=== PATIENT | male | born 1965 | race African-American/Black ===

== ENCOUNTER 2016-04-25 13:42 | Inpatient (IN) | payer OTHER ==
[2016-04-25] MEDS ORDERED: MAGNESIUM CITRATE 300 ML BOTTLE PO PRN (14:29)
[2016-04-25] MEDS ORDERED: MENTHOL/PHENOL 1 EACH UD MM PRN (14:29)
[2016-04-25] MEDS ORDERED: P-EPHED 60MG/TRIPROLIDI 2.5MG TABLET PO PRN (14:29)
[2016-04-25] MEDS ORDERED: guaiFENesin/D-METHORPHAN HB 10 ML UNIT-DOSE CUPS PO PRN (14:29)
[2016-04-25] MEDS ORDERED: LOPERAMIDE HCL 2 MG CAPSULE PO PRN (14:29)
--- NOTE | 2016-04-25 16:31 | HP ---
[facility] Assess/Revision - Admission History Admitted to Rehab from: [facility] Date of Admission to Rehab: 04/25/16 - Findings Detox History & Physical reviewed: Yes Concur with findings: Yes Comments/Additional Findings: transferred from detox to rehab admisison as per protocol
[2016-04-25] MEDS: IBUPROFEN 400 MG TABLET (FP) PO PRN (19:26)
[2016-04-25] MEDS: MAG HYDROX/AL HYDROX/SIMETH 30 ML UNIT-DOSE CUP PO PRN (21:24)
[2016-04-25] MEDS: diphenhydrAMINE HCL 50 MG CAPSULE PO PRN (21:24)
[2016-04-25] MEDS: THIAMINE HCL 100 MG TABLET (FP) PO SCH (21:24)
[2016-04-26] MEDS: diphenhydrAMINE HCL 50 MG CAPSULE PO PRN (02:25)
--- NOTE | 2016-04-26 07:13 | HP ---
Psychiatrist Admission - Data Date of interview: 04/26/16 Admission source: 3N Identifying data: This is the first [facility] admission for this 50 years old male, father of 4, [place] by trade, homeless Medical History: Significant for history of PUD,S/P fracture left 4th finger 25 years ago from [facility], S/P fracture right ankle 26 years ago and S/P Tonsillectomy at age 14 Psychiatric History: Denies history of previous psychiatric treatment Physical/Sexual Abuse/Trauma History: Denies history of physical, sexual abuse as well as DV relationship Additional Comment: Reports history of multile arrests including one felony conviction on charges of drug sale. Denies being on parole/probation at present Vital Signs: Vital Signs - 24 hr 04/26/16 03:30 Respiratory 18 Rate Allergies/Adverse Reactions: Allergies Allergy/AdvReac Type Severity Reaction Status Date / Time No Known Allergies Allergy Verified 04/25/16 13:57 Date of last physical exam: 04/20/16 Concur with the findings of this exam: Yes - Substance Abuse/Tx History Hx Alcohol Use: No Hx Substance Use: Yes Substance Use Type: Cocaine, Heroin (Started using heroin at age 50, consumes 6 bags daily. Last used on 04/20/16), Marijuana Hx Substance Use Treatment: Yes (one recent detox @ [facility]) - Admission Criteria Previous failed treatment: No Poor recovery environment: Yes Comorbidities: Yes Lacks judgement: Yes Mental Status Exam - Mental Status Exam Alert and Oriented to: Time, Place, Person Cognitive Function: Fair Patient Appearance: Well Groomed Mood: Irritable Affect: Appropriate Patient Behavior: Cooperative (superficially) Voice Loudness: Normal Thought Process: Intact Thought Disorder: Not Present Hallucinations: Denies Suicidal Ideation: Denies Homicidal Ideation: Denies Insight/Judgement: Fair Sleep: Fair Appetite: Good Muscle strength/Tone: Normal Gait/Station: Normal Psychiatric Findings - Problem List ([place] 1, 2,3) (1) Opioid dependence with withdrawal Current Visit: No Status: Acute (2) Cocaine dependence, uncomplicated Current Visit: No Status: Chronic (3) Cannabis dependence, uncomplicated Current Visit: No Status: Chronic (4) Nicotine dependence Current Visit: Yes Status: Acute (5) Substance induced mood disorder Current Visit: Yes Status: Acute - Initial Treatment Plan Initial Treatment Plan: Monitor progress
[2016-04-26] MEDS ORDERED: hydrOXYzine PAMOATE 50 MG CAPSULE (FP) PO PRN (07:25)
[2016-04-26] MEDS: PRENATAL VITAMINS W/ FOLIC ACID TABLET (FP) PO SCH (10:15)
[2016-04-26] MEDS: hydrOXYzine PAMOATE 50 MG CAPSULE (FP) PO PRN ×2 (11:32→21:20)
[2016-04-26] MEDS: CYCLOBENZAPRINE HCL 10 MG TABLET (FP) PO PRN ×2 (11:32→21:20)
[2016-04-26] MEDS: ACETAMINOPHEN 325 MG TABLET (FP) PO PRN ×2 (14:56→21:21)
[2016-04-26] MEDS: THIAMINE HCL 100 MG TABLET (FP) PO SCH (21:19)
[2016-04-27] MEDS: diphenhydrAMINE HCL 50 MG CAPSULE PO PRN ×3 (00:18→22:57)
[2016-04-27] MEDS: ACETAMINOPHEN 325 MG TABLET (FP) PO PRN ×2 (01:14→23:58)
[2016-04-27] MEDS: hydrOXYzine PAMOATE 50 MG CAPSULE (FP) PO PRN ×4 (01:14→23:59)
[2016-04-27] MEDS: ONDANSETRON *ODT* 4 MG TABLET SL PRN ×3 (01:48→22:57)
[2016-04-27] MEDS: PRENATAL VITAMINS W/ FOLIC ACID TABLET (FP) PO SCH (10:27)
[2016-04-27] MEDS: CYCLOBENZAPRINE HCL 10 MG TABLET (FP) PO PRN ×2 (10:27→21:51)
[2016-04-27] MEDS ORDERED: diphenhydrAMINE HCL 50 MG CAPSULE PO PRN (11:34)
[2016-04-27] MEDS ORDERED: diphenhydrAMINE HCL 50 MG CAPSULE PO ONE (11:41)
--- NOTE | 2016-04-27 12:57 | PN ---
Psychiatric Progress Note Vital Signs: Vital Signs Period Temp Pulse Resp BP Sys/Linder Pulse Ox Last 24 Hr 96.9 F 20 18-76 111/78 Date of Session: 04/27/16 Chief Complaint:: insomnia HPI: Patient is a 50 year old male with history of opioid, cocaine, nicotine, cannabise dependence comorbid Substance induced mood disorder. ROS: PUD,S/P fracture left 4th finger 25 years ago from [facility], S/P fracture right ankle 26 years ago and S/P Tonsillectomy at age 14 Current Medications: Active Medications Generic Name Dose Route Start Last Admin Trade Name Freq PRN Reason Stop Dose Admin Acetaminophen 650 mg 04/25/16 14:29 04/27/16 01:14 Tylenol - PO 650 mg Q4H PRN Administration FEVER OR PAIN Al Hydroxide/Mg Hydroxide 30 ml 04/25/16 14:29 04/25/16 21:24 Mylanta Oral Suspension - PO 30 ml Q6H PRN Administration DYSPEPSIA Cyclobenzaprine HCl 10 mg 04/26/16 09:22 04/27/16 10:27 Flexeril - PO 10 mg TID PRN Administration MUSCLE SPASMS Diphenhydramine HCl 50 mg 04/27/16 22:00 Benadryl - PO HS PRN INSOMNIA Eucalyptus/Menthol/Phenol/Sorbitol 1 each 04/25/16 14:29 Cepastat Lozenge - MM Q4H PRN SORE THROAT Guaifenesin 10 ml 04/25/16 14:29 Robitussin Dm - PO Q6H PRN COUGH Hydroxyzine Pamoate 50 mg 04/26/16 07:33 04/27/16 10:27 Vistaril - PO 50 mg Q4H PRN Administration AGITATION Ibuprofen 400 mg 04/25/16 14:29 04/25/16 19:26 Motrin - PO 400 mg Q6H PRN Administration PAIN Loperamide HCl 4 mg 04/25/16 14:29 Imodium - PO Q6H PRN DIARRHEA Magnesium Citrate 300 ml 04/25/16 14:29 Citroma - PO 04/27/16 14:30 Q48H PRN CONSTIPATION Magnesium Hydroxide 30 ml 04/25/16 14:29 Milk Of Magnesia - PO DAILY PRN CONSTIPATION Ondansetron HCl 4 mg 04/26/16 13:03 04/27/16 01:48 Zofran Odt - SL 4 mg Q6H PRN Administration NAUSEA AND/OR VOMITING Multivit/Folic Acid/Iron 1 tab 04/26/16 10:00 04/27/16 10:27 Vitamins (Sjr) - PO 1 tab DAILY ZOE Administration Pseudoephedrine/Triprolidine 1 combo 04/25/16 14:29 Actifed - PO TID PRN NASAL CONGESTION Thiamine HCl 100 mg 04/25/16 22:00 04/26/16 21:19 Vitamin B1 - PO 100 mg HS ZOE Administration Current Side Effect: No Lab tests ordered: No Lab tests reviewed: Yes Provider note:: Reviewed the chart, 's admission notes appreciated, patient having a difficult time to adjust to the unit, reports he has body aches , unable to sleep, "up since 1 am", irritable and unable to stay in the groups. When discssued with the patient about availabilty of Vistaril he became angry stating "I am not crazy, I don't want anything "and left the office. 10 minites later patient came back with appology and reported that he needs to take Benadryl and rather to go to bed ad not to wait till evening. Benaryl 100 mg po state ordered, patient was encouraged to ask for Vistaril PRN order, will continue to monitor progress. Total face to face time:: 35 Mental Status Exam - Mental Status Exam Alert and Oriented to: Place, Person Cognitive Function: Grossly Intact Patient Appearance: Well Groomed Mood: Angry, Anxious, Irritable Affect: Mood Congruent Patient Behavior: Appropriate Speech Pattern: Clear, Appropriate Voice Loudness: Normal Thought Process: Goal Oriented Thought Disorder: Not Present Hallucinations: Denies Suicidal Ideation: Denies Homicidal Ideation: Denies Insight/Judgement: Fair Sleep: Poorly (up since 1 am), Difficulty falling asleep Appetite: Fair Muscle strength/Tone: Normal Gait/Station: Normal Psychiatric Treatment Plan - Problem List (1) Nicotine dependence Current Visit: Yes (2) Substance induced mood disorder Current Visit: Yes (3) Opioid dependence with withdrawal Current Visit: No (4) Cannabis dependence, uncomplicated Current Visit: No
[2016-04-27] MEDS: THIAMINE HCL 100 MG TABLET (FP) PO SCH (21:49)
[2016-04-27] MEDS: DOCUSATE SODIUM 100 MG CAPSULE (FP) PO PRN (21:50)
[2016-04-28] MEDS ORDERED: QUEtiapine FUMARATE 25 MG TABLET (FP) PO ONE (07:41)
--- NOTE | 2016-04-28 09:41 | PN ---
Psychiatric Progress Note Vital Signs: Vital Signs Period Temp Pulse Resp BP Sys/Linder Pulse Ox Last 24 Hr 97.4 F 84 18 126/93 Date of Session: 04/28/16 Chief Complaint:: "insomnia, mood swings" HPI: PAtient is addressing opioid, cocaine, nicotine, cannabis dependence comorbid Substance induced mood disorder. ROS: PUD,S/P fracture left 4th finger 25 years ago from [facility], S/P fracture right ankle 26 years ago and S/P Tonsillectomy at age 14 Current Medications: Active Medications Generic Name Dose Route Start Last Admin Trade Name Freq PRN Reason Stop Dose Admin Acetaminophen 650 mg 04/25/16 14:29 04/27/16 23:58 Tylenol - PO 650 mg Q4H PRN Administration FEVER OR PAIN Al Hydroxide/Mg Hydroxide 30 ml 04/25/16 14:29 04/25/16 21:24 Mylanta Oral Suspension - PO 30 ml Q6H PRN Administration DYSPEPSIA Cyclobenzaprine HCl 10 mg 04/26/16 09:22 04/27/16 21:51 Flexeril - PO 10 mg TID PRN Administration MUSCLE SPASMS Diphenhydramine HCl 50 mg 04/27/16 22:00 04/27/16 22:57 Benadryl - PO 50 mg HS PRN Administration INSOMNIA Docusate Sodium 100 mg 04/27/16 21:25 04/27/16 21:50 Colace - PO 100 mg BID PRN Administration CONSTIPATION Eucalyptus/Menthol/Phenol/Sorbitol 1 each 04/25/16 14:29 Cepastat Lozenge - MM Q4H PRN SORE THROAT Guaifenesin 10 ml 04/25/16 14:29 Robitussin Dm - PO Q6H PRN COUGH Hydroxyzine Pamoate 50 mg 04/26/16 07:33 04/27/16 23:59 Vistaril - PO 50 mg Q4H PRN Administration AGITATION Ibuprofen 400 mg 04/25/16 14:29 04/25/16 19:26 Motrin - PO 400 mg Q6H PRN Administration PAIN Loperamide HCl 4 mg 04/25/16 14:29 Imodium - PO Q6H PRN DIARRHEA Magnesium Hydroxide 30 ml 04/25/16 14:29 Milk Of Magnesia - PO DAILY PRN CONSTIPATION Ondansetron HCl 4 mg 04/26/16 13:03 04/27/16 22:57 Zofran Odt - SL 4 mg Q6H PRN Administration NAUSEA AND/OR VOMITING Multivit/Folic Acid/Iron 1 tab 04/26/16 10:00 04/27/16 10:27 Vitamins (Sjr) - PO 1 tab DAILY ZOE Administration Pseudoephedrine/Triprolidine 1 combo 04/25/16 14:29 Actifed - PO TID PRN NASAL CONGESTION Quetiapine Fumarate 25 mg 04/28/16 22:00 Seroquel - PO HS ZOE Thiamine HCl 100 mg 04/25/16 22:00 04/27/16 21:49 Vitamin B1 - PO Not Given HS ZOE Current Side Effect: No Lab tests ordered: No Lab tests reviewed: Yes Provider note:: Patient reports did not sleep all night and he is very irritable , having mood swings, night staff also reported that patient was up all night pacing in [place], discussed with the patient indications and properties of Seroquel, patient agreed to start medications, will start 25 mg po hs and will give stat Seroquel 25 mg , continue to monitor progress. Total face to face time:: 15 Mental Status Exam - Mental Status Exam Alert and Oriented to: Place, Person Cognitive Function: Grossly Intact Patient Appearance: Well Groomed Mood: Sad, Anxious, Irritable Affect: Mood Congruent Patient Behavior: Cooperative Speech Pattern: Clear, Appropriate Voice Loudness: Normal Thought Process: Intact Thought Disorder: Not Present Hallucinations: Denies Suicidal Ideation: Denies Homicidal Ideation: Denies Insight/Judgement: Fair Sleep: Poorly, Difficulty falling asleep Appetite: Fair Muscle strength/Tone: Normal Gait/Station: Normal Psychiatric Treatment Plan - Problem List (1) Nicotine dependence Current Visit: Yes (2) Substance induced mood disorder Current Visit: Yes (3) Opioid dependence with withdrawal Current Visit: No (4) Cannabis dependence, uncomplicated Current Visit: No
[2016-04-28] MEDS: CYCLOBENZAPRINE HCL 10 MG TABLET (FP) PO PRN (10:26)
[2016-04-28] MEDS: hydrOXYzine PAMOATE 50 MG CAPSULE (FP) PO PRN (10:26)
[2016-04-28] MEDS: PRENATAL VITAMINS W/ FOLIC ACID TABLET (FP) PO SCH (10:27)
[2016-04-28] MEDS ORDERED: LIDOCAINE 5% TOPICAL PATCH TP ONE (12:52)
--- NOTE | 2016-04-28 13:05 | PN ---
[facility] Progress Note Note: patient reports feeling better after Seroquel am, but still irritable , racing thoughst and restless, will increase Seroquel 50 mg po hs, continue am 25, monitor progress as needed.
[2016-04-28] MEDS: MAGNESIUM HYDROX 2400MG/30ML ORAL SUSPENSION 30 ML CUP PO PRN (19:16)
[2016-04-28] MEDS: diphenhydrAMINE HCL 50 MG CAPSULE PO PRN (21:19)
[2016-04-28] MEDS: QUEtiapine FUMARATE 50 MG TABLET PO SCH (21:19)
[2016-04-28] MEDS: THIAMINE HCL 100 MG TABLET (FP) PO SCH (21:19)
[2016-04-28] MEDS: cloNIDine HCL 0.1 MG TABLET PO SCH (21:19)
[2016-04-28] MEDS: ONDANSETRON *ODT* 4 MG TABLET SL PRN (21:59)
[2016-04-28] MEDS ORDERED: QUEtiapine FUMARATE 25 MG TABLET (FP) PO SCH (22:00)
[2016-04-29] MEDS: diphenhydrAMINE HCL 50 MG CAPSULE PO PRN ×2 (00:12→21:01)
[2016-04-29] MEDS: CYCLOBENZAPRINE HCL 10 MG TABLET (FP) PO PRN (00:13)
[2016-04-29] MEDS: hydrOXYzine PAMOATE 50 MG CAPSULE (FP) PO PRN ×2 (01:13→06:30)
[2016-04-29] MEDS: ACETAMINOPHEN 325 MG TABLET (FP) PO PRN (01:13)
[2016-04-29] MEDS ORDERED: cloNIDine HCL 0.1 MG TABLET PO ONE (04:02)
[2016-04-29] MEDS: cloNIDine HCL 0.1 MG TABLET PO SCH ×2 (09:17→21:01)
[2016-04-29] MEDS: QUEtiapine FUMARATE 25 MG TABLET (FP) PO SCH (09:17)
[2016-04-29] MEDS: PRENATAL VITAMINS W/ FOLIC ACID TABLET (FP) PO SCH (09:17)
[2016-04-29] MEDS ORDERED: LIDOCAINE 5% TOPICAL PATCH TP SCH (10:00)
[2016-04-29] MEDS: THIAMINE HCL 100 MG TABLET (FP) PO SCH (21:01)
[2016-04-29] MEDS: QUEtiapine FUMARATE 50 MG TABLET PO SCH (21:01)
[2016-04-30] MEDS: diphenhydrAMINE HCL 50 MG CAPSULE PO PRN ×2 (00:22→21:20)
[2016-04-30] MEDS: IBUPROFEN 400 MG TABLET (FP) PO PRN (03:52)
[2016-04-30] MEDS: QUEtiapine FUMARATE 25 MG TABLET (FP) PO SCH (10:20)
[2016-04-30] MEDS: DOCUSATE SODIUM 100 MG CAPSULE (FP) PO PRN (10:20)
[2016-04-30] MEDS: cloNIDine HCL 0.1 MG TABLET PO SCH ×2 (10:20→21:19)
[2016-04-30] MEDS: PRENATAL VITAMINS W/ FOLIC ACID TABLET (FP) PO SCH (10:20)
[2016-04-30] MEDS: QUEtiapine FUMARATE 50 MG TABLET PO SCH (21:19)
[2016-04-30] MEDS: THIAMINE HCL 100 MG TABLET (FP) PO SCH (21:20)
[2016-04-30] MEDS: MAGNESIUM HYDROX 2400MG/30ML ORAL SUSPENSION 30 ML CUP PO PRN (23:24)
[2016-05-01] MEDS: diphenhydrAMINE HCL 50 MG CAPSULE PO PRN ×3 (00:14→23:42)
[2016-05-01] MEDS: CYCLOBENZAPRINE HCL 10 MG TABLET (FP) PO PRN ×2 (00:15→18:18)
[2016-05-01] MEDS: PRENATAL VITAMINS W/ FOLIC ACID TABLET (FP) PO SCH (09:00)
[2016-05-01] MEDS: QUEtiapine FUMARATE 25 MG TABLET (FP) PO SCH (09:00)
[2016-05-01] MEDS: DOCUSATE SODIUM 100 MG CAPSULE (FP) PO PRN (09:00)
[2016-05-01] MEDS: cloNIDine HCL 0.1 MG TABLET PO SCH (09:01)
[2016-05-01] MEDS: hydrOXYzine PAMOATE 50 MG CAPSULE (FP) PO PRN ×2 (09:01→19:21)
[2016-05-01] MEDS: ACETAMINOPHEN 325 MG TABLET (FP) PO PRN (09:02)
[2016-05-01] MEDS: ONDANSETRON *ODT* 4 MG TABLET SL PRN ×3 (13:05→23:42)
[2016-05-01] MEDS ORDERED: TRIMETHOBENZAMIDE HCL 200MG/2ML INJ IM PRN (13:28)
--- NOTE | 2016-05-01 13:31 | PN ---
S Progress Note Note: patient has vomiting,tigan 200 mgs im Q 8hrs prn for vomiting,close monitoring
[2016-05-01] MEDS: THIAMINE HCL 100 MG TABLET (FP) PO SCH (21:40)
[2016-05-01] MEDS: QUEtiapine FUMARATE 50 MG TABLET PO SCH (21:40)
[2016-05-01] MEDS: cloNIDine HCL 0.1 MG TABLET PO PRN (21:41)
[2016-05-02] MEDS: hydrOXYzine PAMOATE 50 MG CAPSULE (FP) PO PRN ×3 (01:10→23:13)
[2016-05-02] MEDS: cloNIDine HCL 0.1 MG TABLET PO PRN (06:59)
[2016-05-02] MEDS: CYCLOBENZAPRINE HCL 10 MG TABLET (FP) PO PRN ×2 (07:01→23:13)
[2016-05-02] MEDS: DOCUSATE SODIUM 100 MG CAPSULE (FP) PO PRN (10:42)
[2016-05-02] MEDS: QUEtiapine FUMARATE 25 MG TABLET (FP) PO SCH (10:42)
[2016-05-02] MEDS: PRENATAL VITAMINS W/ FOLIC ACID TABLET (FP) PO SCH (10:42)
[2016-05-02] MEDS: ONDANSETRON *ODT* 4 MG TABLET SL PRN ×2 (10:43→22:20)
[2016-05-02] MEDS: QUEtiapine FUMARATE 50 MG TABLET PO SCH (21:24)
[2016-05-02] MEDS: THIAMINE HCL 100 MG TABLET (FP) PO SCH (21:24)
[2016-05-02] MEDS: diphenhydrAMINE HCL 50 MG CAPSULE PO PRN ×2 (21:25→22:24)
[2016-05-03] MEDS: cloNIDine HCL 0.1 MG TABLET PO PRN ×3 (00:43→21:32)
[2016-05-03] MEDS: MAG HYDROX/AL HYDROX/SIMETH 30 ML UNIT-DOSE CUP PO PRN (03:33)
[2016-05-03] MEDS: hydrOXYzine PAMOATE 50 MG CAPSULE (FP) PO PRN ×3 (03:33→21:32)
[2016-05-03] MEDS: QUEtiapine FUMARATE 25 MG TABLET (FP) PO SCH (09:06)
[2016-05-03] MEDS: PRENATAL VITAMINS W/ FOLIC ACID TABLET (FP) PO SCH (09:06)
[2016-05-03] MEDS: CYCLOBENZAPRINE HCL 10 MG TABLET (FP) PO PRN ×2 (09:08→21:32)
--- NOTE | 2016-05-03 13:29 | PN ---
Psychiatric Progress Note Vital Signs: Vital Signs Period Temp Pulse Resp BP Sys/Linder Pulse Ox Last 24 Hr 97 F 64-95 18-18 117-129/75-78 Date of Session: 05/03/16 Chief Complaint:: progress update HPI: Patient is addressing opioid, cocaine, nicotine, cannabis dependence comorbid Substance induced mood disorder. ROS: WNL Current Medications: Active Medications Generic Name Dose Route Start Last Admin Trade Name Freq PRN Reason Stop Dose Admin Acetaminophen 650 mg 04/25/16 14:29 05/01/16 09:02 Tylenol - PO 650 mg Q4H PRN Administration FEVER OR PAIN Al Hydroxide/Mg Hydroxide 30 ml 04/25/16 14:29 05/03/16 03:33 Mylanta Oral Suspension - PO 30 ml Q6H PRN Administration DYSPEPSIA Clonidine 0.1 mg 05/01/16 20:43 05/03/16 09:07 Catapres - PO 0.1 mg TID PRN Administration HYPERTENSION Cyclobenzaprine HCl 10 mg 04/26/16 09:22 05/03/16 09:08 Flexeril - PO 10 mg TID PRN Administration MUSCLE SPASMS Diphenhydramine HCl 50 mg 04/27/16 22:00 05/02/16 22:24 Benadryl - PO 50 mg HS PRN Administration INSOMNIA Docusate Sodium 100 mg 04/27/16 21:25 05/02/16 10:42 Colace - PO 100 mg BID PRN Administration CONSTIPATION Eucalyptus/Menthol/Phenol/Sorbitol 1 each 04/25/16 14:29 Cepastat Lozenge - MM Q4H PRN SORE THROAT Guaifenesin 10 ml 04/25/16 14:29 Robitussin Dm - PO Q6H PRN COUGH Hydroxyzine Pamoate 50 mg 04/26/16 07:33 05/03/16 09:07 Vistaril - PO 50 mg Q4H PRN Administration AGITATION Ibuprofen 400 mg 04/25/16 14:29 04/30/16 03:52 Motrin - PO 400 mg Q6H PRN Administration PAIN Loperamide HCl 4 mg 04/25/16 14:29 Imodium - PO Q6H PRN DIARRHEA Magnesium Hydroxide 30 ml 04/25/16 14:29 04/30/16 23:24 Milk Of Magnesia - PO 30 ml DAILY PRN Administration CONSTIPATION Ondansetron HCl 4 mg 04/26/16 13:03 05/02/16 22:20 Zofran Odt - SL 4 mg Q6H PRN Administration NAUSEA AND/OR VOMITING Multivit/Folic Acid/Iron 1 tab 04/26/16 10:00 05/03/16 09:06 Vitamins (Sjr) - PO 1 tab DAILY ZOE Administration Pseudoephedrine/Triprolidine 1 combo 04/25/16 14:29 Actifed - PO TID PRN NASAL CONGESTION Quetiapine Fumarate 25 mg 04/29/16 10:00 05/03/16 09:06 Seroquel - PO 25 mg DAILY ZOE Administration Thiamine HCl 100 mg 04/25/16 22:00 05/02/16 21:24 Vitamin B1 - PO 100 mg HS ZOE Administration Trimethobenzamide HCl 200 mg 05/01/16 13:28 05/01/16 13:54 Tigan Injection - IM 200 mg Q8H PRN Administration NAUSEA AND/OR VOMITING Current Side Effect: No Lab tests ordered: No Lab tests reviewed: Yes Provider note:: Patient was seen today, he continues to c/o insomnia, mood swings, irritablity, states he sleeps 30 min and the rest of the nights he is up , on 05/02/16 as per nurses report he was restless and c/o withdrawal symptoms: anxiety, insomnia, sweats, and bodyaches and was seen by . Reviwed his current medications, will increase Seroquel 100 mg hs, psycheducations and supportive therapy provided, will continue to monitor. Total face to face time:: 30 Mental Status Exam - Mental Status Exam Alert and Oriented to: Time, Place, Person Cognitive Function: Good Patient Appearance: Well Groomed Mood: Depressed, Sad, Anxious Affect: Appropriate, Mood Congruent Patient Behavior: Restless, Cooperative Speech Pattern: Clear, Appropriate Voice Loudness: Normal Thought Process: Goal Oriented Thought Disorder: Not Present Hallucinations: Denies Suicidal Ideation: Denies Homicidal Ideation: Denies Insight/Judgement: Fair Sleep: Poorly, Difficulty falling asleep Appetite: Fair Muscle strength/Tone: Normal Gait/Station: Normal Psychiatric Treatment Plan - Problem List (1) Nicotine dependence Current Visit: Yes (2) Substance induced mood disorder Current Visit: Yes (3) Opioid dependence with withdrawal Current Visit: No (4) Cannabis dependence, uncomplicated Current Visit: No
[2016-05-03] MEDS: THIAMINE HCL 100 MG TABLET (FP) PO SCH (21:30)
[2016-05-03] MEDS: QUEtiapine FUMARATE 100 MG TABLET (FP) PO SCH (21:31)
[2016-05-03] MEDS: diphenhydrAMINE HCL 50 MG CAPSULE PO PRN (23:55)
[2016-05-04] MEDS: PRENATAL VITAMINS W/ FOLIC ACID TABLET (FP) PO SCH (09:27)
[2016-05-04] MEDS: hydrOXYzine PAMOATE 50 MG CAPSULE (FP) PO PRN ×2 (09:27→21:11)
[2016-05-04] MEDS: cloNIDine HCL 0.1 MG TABLET PO PRN ×2 (09:28→21:11)
[2016-05-04] MEDS: QUEtiapine FUMARATE 25 MG TABLET (FP) PO SCH (09:28)
[2016-05-04] MEDS: CYCLOBENZAPRINE HCL 10 MG TABLET (FP) PO PRN ×2 (09:28→21:11)
[2016-05-04] MEDS: THIAMINE HCL 100 MG TABLET (FP) PO SCH (21:09)
[2016-05-04] MEDS: QUEtiapine FUMARATE 100 MG TABLET (FP) PO SCH (21:11)
[2016-05-04] MEDS: diphenhydrAMINE HCL 50 MG CAPSULE PO PRN (22:20)
[2016-05-04] MEDS: ONDANSETRON *ODT* 4 MG TABLET SL PRN (23:14)
[2016-05-05] MEDS: MAG HYDROX/AL HYDROX/SIMETH 30 ML UNIT-DOSE CUP PO PRN (01:00)
[2016-05-05] MEDS ORDERED: PANTOPRAZOLE 40 MG TABLET (FP) PO ONE (02:30)
--- NOTE | 2016-05-05 02:38 | PN ---
S Progress Note Note: Pt. c/o of stomach pain. He reports he's had this pain for the last 5 years. He describes the pain as intermittent burning sensation and rates the pain 7/ 10. He also complains of having a malodorous taste in his mouth. BSx 4; mild tenderness on palpation to left lower quadrant. Protonix 40mg daily ordered. Will continue to monitor. Last Vital Signs Temp Pulse Resp BP 95.9 F 95 H 15 110/76 05/05/16 05/05/16 05/05/16 05/05/16
[2016-05-05] MEDS: QUEtiapine FUMARATE 25 MG TABLET (FP) PO SCH (11:00)
[2016-05-05] MEDS: PRENATAL VITAMINS W/ FOLIC ACID TABLET (FP) PO SCH (11:00)
--- NOTE | 2016-05-05 11:36 | PN ---
Psychiatric Progress Note Vital Signs: Vital Signs Period Temp Pulse Resp BP Sys/Linder Pulse Ox Last 24 Hr 98.8 F 82-101 16-18 130-163/67-83 Date of Session: 05/05/16 Chief Complaint:: "insomnia" HPI: Patient addressing oipoid, nicotine dependence comorbid substcance induced mood and sleep disorder. Current Medications: Active Medications Generic Name Dose Route Start Last Admin Trade Name Freq PRN Reason Stop Dose Admin Acetaminophen 650 mg 04/25/16 14:29 05/01/16 09:02 Tylenol - PO 650 mg Q4H PRN Administration FEVER OR PAIN Al Hydroxide/Mg Hydroxide 30 ml 04/25/16 14:29 05/05/16 01:00 Mylanta Oral Suspension - PO 30 ml Q6H PRN Administration DYSPEPSIA Clonidine 0.1 mg 05/01/16 20:43 05/04/16 21:11 Catapres - PO 0.1 mg TID PRN Administration HYPERTENSION Cyclobenzaprine HCl 10 mg 04/26/16 09:22 05/04/16 21:11 Flexeril - PO 10 mg TID PRN Administration MUSCLE SPASMS Diphenhydramine HCl 50 mg 04/27/16 22:00 05/04/16 22:20 Benadryl - PO 50 mg HS PRN Administration INSOMNIA Docusate Sodium 100 mg 04/27/16 21:25 05/02/16 10:42 Colace - PO 100 mg BID PRN Administration CONSTIPATION Eucalyptus/Menthol/Phenol/Sorbitol 1 each 04/25/16 14:29 Cepastat Lozenge - MM Q4H PRN SORE THROAT Guaifenesin 10 ml 04/25/16 14:29 Robitussin Dm - PO Q6H PRN COUGH Hydroxyzine Pamoate 50 mg 04/26/16 07:33 05/04/16 21:11 Vistaril - PO 50 mg Q4H PRN Administration AGITATION Ibuprofen 400 mg 04/25/16 14:29 04/30/16 03:52 Motrin - PO 400 mg Q6H PRN Administration PAIN Loperamide HCl 4 mg 04/25/16 14:29 Imodium - PO Q6H PRN DIARRHEA Magnesium Hydroxide 30 ml 04/25/16 14:29 04/30/16 23:24 Milk Of Magnesia - PO 30 ml DAILY PRN Administration CONSTIPATION Ondansetron HCl 4 mg 04/26/16 13:03 05/04/16 23:14 Zofran Odt - SL 4 mg Q6H PRN Administration NAUSEA AND/OR VOMITING Pantoprazole Sodium 40 mg 05/06/16 10:00 Protonix - PO DAILY ZOE Multivit/Folic Acid/Iron 1 tab 04/26/16 10:00 05/05/16 11:00 Vitamins (Sjr) - PO Not Given DAILY ZOE Pseudoephedrine/Triprolidine 1 combo 04/25/16 14:29 Actifed - PO TID PRN NASAL CONGESTION Quetiapine Fumarate 25 mg 04/29/16 10:00 05/05/16 11:00 Seroquel - PO Not Given DAILY ZOE Quetiapine Fumarate 100 mg 05/03/16 22:00 05/04/16 21:11 Seroquel - PO 100 mg HS ZOE Administration Thiamine HCl 100 mg 04/25/16 22:00 05/04/16 21:09 Vitamin B1 - PO 100 mg HS ZOE Administration Trimethobenzamide HCl 200 mg 05/01/16 13:28 05/01/16 13:54 Tigan Injection - IM 200 mg Q8H PRN Administration NAUSEA AND/OR VOMITING Current Side Effect: No Lab tests ordered: No Lab tests reviewed: Yes Provider note:: Patient continues having difficulty to adjust to the treatment due to insomnia, as per medical staff reports patient all night is up despite of being medicated,he also refuses to take am Seroquel, discussed with the patient indications and properties of ambien, patient was informed that ambien will be presribed for 7 days to help patient with his insomnia. Total face to face time:: 15 Mental Status Exam - Mental Status Exam Alert and Oriented to: Place, Person Cognitive Function: Grossly Intact Patient Appearance: Well Groomed Mood: Sad, Anxious, Irritable Affect: Mood Congruent Patient Behavior: Cooperative Speech Pattern: Appropriate Voice Loudness: Normal Thought Process: Goal Oriented Thought Disorder: Not Present Hallucinations: Denies Suicidal Ideation: Denies Homicidal Ideation: Denies Insight/Judgement: Fair Sleep: Poorly, Difficulty falling asleep Appetite: Fair Muscle strength/Tone: Normal Gait/Station: Normal Psychiatric Treatment Plan - Problem List (1) Nicotine dependence Current Visit: Yes (2) Substance induced mood disorder Current Visit: Yes (3) Opioid dependence with withdrawal Current Visit: No (4) Cannabis dependence, uncomplicated Current Visit: No
[2016-05-05] MEDS: QUEtiapine FUMARATE 100 MG TABLET (FP) PO SCH (21:37)
[2016-05-05] MEDS: PANTOPRAZOLE 40 MG TABLET (FP) PO SCH (21:37)
[2016-05-05] MEDS: THIAMINE HCL 100 MG TABLET (FP) PO SCH (21:37)
[2016-05-05] MEDS: ZOLPIDEM TARTRATE 10 MG TABLET (PARK CARE ONLY) PO PRN (21:40)
[2016-05-05] MEDS ORDERED: PANTOPRAZOLE 40 MG TABLET (FP) PO SCH (22:00)
[2016-05-06] MEDS ORDERED: PANTOPRAZOLE 40 MG TABLET (FP) PO SCH (10:00)
[2016-05-06] MEDS: PRENATAL VITAMINS W/ FOLIC ACID TABLET (FP) PO SCH (10:18)
[2016-05-06] MEDS: ZOLPIDEM TARTRATE 10 MG TABLET (PARK CARE ONLY) PO PRN (21:21)
[2016-05-06] MEDS: QUEtiapine FUMARATE 100 MG TABLET (FP) PO SCH (21:22)
[2016-05-06] MEDS: THIAMINE HCL 100 MG TABLET (FP) PO SCH (21:22)
[2016-05-06] MEDS: PANTOPRAZOLE 40 MG TABLET (FP) PO SCH (21:22)
[2016-05-06] MEDS: MAGNESIUM HYDROX 2400MG/30ML ORAL SUSPENSION 30 ML CUP PO PRN (22:40)
[2016-05-07] MEDS: MAG HYDROX/AL HYDROX/SIMETH 30 ML UNIT-DOSE CUP PO PRN ×2 (00:53→11:01)
[2016-05-07] MEDS: ONDANSETRON *ODT* 4 MG TABLET SL PRN (01:16)
[2016-05-07] MEDS: hydrOXYzine PAMOATE 50 MG CAPSULE (FP) PO PRN (02:21)
[2016-05-07] MEDS: cloNIDine HCL 0.1 MG TABLET PO PRN (05:47)
[2016-05-07] MEDS: DOCUSATE SODIUM 100 MG CAPSULE (FP) PO PRN (05:47)
[2016-05-07] MEDS: PRENATAL VITAMINS W/ FOLIC ACID TABLET (FP) PO SCH (10:42)
[2016-05-07] MEDS: RANITIDINE HCL 150 MG TABLET (FP) PO SCH ×2 (12:01→21:24)
[2016-05-07] MEDS: PANTOPRAZOLE 40 MG TABLET (FP) PO SCH (21:24)
[2016-05-07] MEDS: ZOLPIDEM TARTRATE 10 MG TABLET (PARK CARE ONLY) PO PRN (21:24)
[2016-05-07] MEDS: QUEtiapine FUMARATE 100 MG TABLET (FP) PO SCH (21:24)
[2016-05-07] MEDS: THIAMINE HCL 100 MG TABLET (FP) PO SCH (21:51)
[2016-05-08] MEDS: hydrOXYzine PAMOATE 50 MG CAPSULE (FP) PO PRN (02:27)
[2016-05-08] MEDS: DOCUSATE SODIUM 100 MG CAPSULE (FP) PO PRN (06:36)
[2016-05-08] MEDS: cloNIDine HCL 0.1 MG TABLET PO PRN (06:36)
[2016-05-08] MEDS: PRENATAL VITAMINS W/ FOLIC ACID TABLET (FP) PO SCH (09:55)
[2016-05-08] MEDS: RANITIDINE HCL 150 MG TABLET (FP) PO SCH ×2 (09:55→21:26)
[2016-05-08] MEDS: QUEtiapine FUMARATE 100 MG TABLET (FP) PO SCH (21:26)
[2016-05-08] MEDS: THIAMINE HCL 100 MG TABLET (FP) PO SCH (21:26)
[2016-05-08] MEDS: PANTOPRAZOLE 40 MG TABLET (FP) PO SCH (21:27)
[2016-05-08] MEDS: ZOLPIDEM TARTRATE 10 MG TABLET (PARK CARE ONLY) PO PRN (21:27)
[2016-05-09] MEDS: DOCUSATE SODIUM 100 MG CAPSULE (FP) PO PRN (00:32)
[2016-05-09] MEDS: MAG HYDROX/AL HYDROX/SIMETH 30 ML UNIT-DOSE CUP PO PRN (02:19)
[2016-05-09] MEDS: RANITIDINE HCL 150 MG TABLET (FP) PO SCH ×2 (09:37→21:48)
[2016-05-09] MEDS: PRENATAL VITAMINS W/ FOLIC ACID TABLET (FP) PO SCH (09:37)
[2016-05-09] MEDS: THIAMINE HCL 100 MG TABLET (FP) PO SCH (21:47)
[2016-05-09] MEDS: QUEtiapine FUMARATE 100 MG TABLET (FP) PO SCH (21:48)
[2016-05-09] MEDS: PANTOPRAZOLE 40 MG TABLET (FP) PO SCH (21:48)
[2016-05-09] MEDS: hydrOXYzine PAMOATE 50 MG CAPSULE (FP) PO PRN (21:52)
[2016-05-09] MEDS: MAGNESIUM HYDROX 2400MG/30ML ORAL SUSPENSION 30 ML CUP PO PRN (23:35)
[2016-05-09] MEDS: ONDANSETRON *ODT* 4 MG TABLET SL PRN (23:38)
[2016-05-10] MEDS: hydrOXYzine PAMOATE 50 MG CAPSULE (FP) PO PRN (01:38)
[2016-05-10] MEDS: diphenhydrAMINE HCL 50 MG CAPSULE PO PRN ×3 (01:55→23:52)
[2016-05-10] MEDS: PRENATAL VITAMINS W/ FOLIC ACID TABLET (FP) PO SCH (09:34)
[2016-05-10] MEDS: RANITIDINE HCL 150 MG TABLET (FP) PO SCH ×2 (09:34→21:14)
[2016-05-10] MEDS: PSYLLIUM 5.85 GM PACKET PO SCH (21:13)
[2016-05-10] MEDS: QUEtiapine FUMARATE 100 MG TABLET (FP) PO SCH (21:14)
[2016-05-10] MEDS: PANTOPRAZOLE 40 MG TABLET (FP) PO SCH (21:14)
[2016-05-10] MEDS: THIAMINE HCL 100 MG TABLET (FP) PO SCH (21:15)
[2016-05-10] MEDS: ONDANSETRON *ODT* 4 MG TABLET SL PRN (21:23)
[2016-05-11] MEDS: PSYLLIUM 5.85 GM PACKET PO SCH ×2 (10:11→21:34)
[2016-05-11] MEDS: PRENATAL VITAMINS W/ FOLIC ACID TABLET (FP) PO SCH (10:11)
[2016-05-11] MEDS: POLYETHYLENE GLYCOL 3350 119 GM BTL PO SCH (10:11)
[2016-05-11] MEDS: RANITIDINE HCL 150 MG TABLET (FP) PO SCH ×2 (10:12→21:31)
[2016-05-11] MEDS: hydrOXYzine PAMOATE 50 MG CAPSULE (FP) PO PRN (10:31)
--- NOTE | 2016-05-11 13:08 | PN ---
Psychiatric Progress Note Vital Signs: Vital Signs Period Temp Pulse Resp BP Sys/Linder Pulse Ox Last 24 Hr 97.9 F 89-90 18 130-141/80-82 Date of Session: 05/11/16 Chief Complaint:: I didint sleep for a few days and Seroquel didnt help." HPI: Patient addressed Opioid,Cocaine and Cannabis depenendce comorbid with Substance induced mood disorder. ROS: Unremarkable. Current Medications: Active Medications Generic Name Dose Route Start Last Admin Trade Name Freq PRN Reason Stop Dose Admin Acetaminophen 650 mg 04/25/16 14:29 05/01/16 09:02 Tylenol - PO 650 mg Q4H PRN Administration FEVER OR PAIN Al Hydroxide/Mg Hydroxide 30 ml 04/25/16 14:29 05/09/16 02:19 Mylanta Oral Suspension - PO 30 ml Q6H PRN Administration DYSPEPSIA Clonidine 0.1 mg 05/01/16 20:43 05/08/16 06:36 Catapres - PO 0.1 mg TID PRN Administration HYPERTENSION Cyclobenzaprine HCl 10 mg 04/26/16 09:22 05/04/16 21:11 Flexeril - PO 10 mg TID PRN Administration MUSCLE SPASMS Diphenhydramine HCl 50 mg 05/10/16 01:40 05/10/16 23:52 Benadryl - PO 50 mg DAILY PRN Administration INSOMNIA Eucalyptus/Menthol/Phenol/Sorbitol 1 each 04/25/16 14:29 Cepastat Lozenge - MM Q4H PRN SORE THROAT Guaifenesin 10 ml 04/25/16 14:29 Robitussin Dm - PO Q6H PRN COUGH Hydroxyzine Pamoate 50 mg 04/26/16 07:33 05/11/16 10:31 Vistaril - PO 50 mg Q4H PRN Administration AGITATION Ibuprofen 400 mg 04/25/16 14:29 04/30/16 03:52 Motrin - PO 400 mg Q6H PRN Administration PAIN Loperamide HCl 4 mg 04/25/16 14:29 Imodium - PO Q6H PRN DIARRHEA Magnesium Hydroxide 30 ml 04/25/16 14:29 05/09/16 23:35 Milk Of Magnesia - PO 30 ml DAILY PRN Administration CONSTIPATION Ondansetron HCl 4 mg 04/26/16 13:03 05/10/16 21:23 Zofran Odt - SL 4 mg Q6H PRN Administration NAUSEA AND/OR VOMITING Pantoprazole Sodium 40 mg 05/05/16 22:00 05/10/16 21:14 Protonix - PO 40 mg DAILY@2200 ZOE Administration Polyethylene Glycol 17 gm 05/11/16 10:00 05/11/16 10:11 Miralax (For Daily Use) - PO Not Given DAILY ZOE Multivit/Folic Acid/Iron 1 tab 04/26/16 10:00 05/11/16 10:11 Vitamins (Sjr) - PO 1 tab DAILY ZOE Administration Pseudoephedrine/Triprolidine 1 combo 04/25/16 14:29 Actifed - PO TID PRN NASAL CONGESTION Psyllium Hydrophilic Mucilloid 5.85 gm 05/10/16 22:00 05/11/16 10:11 Metamucil (Sugar-Free) - PO 5.85 gm BID ZOE Administration Ranitidine HCl 150 mg 05/07/16 11:30 05/11/16 10:12 Zantac - PO 150 mg BID ZOE Administration Thiamine HCl 100 mg 04/25/16 22:00 05/10/16 21:15 Vitamin B1 - PO Not Given HS ZOE Trazodone HCl 100 mg 05/11/16 22:00 Desyrel - PO HS ZOE Trimethobenzamide HCl 200 mg 05/01/16 13:28 05/01/16 13:54 Tigan Injection - IM 200 mg Q8H PRN Administration NAUSEA AND/OR VOMITING Current Side Effect: No Lab tests ordered: No Lab tests reviewed: Yes Provider note:: Patient was evaluated today in my office,addressed ongoing sleeping difficulties-inability to fall asleep and interrupted sleep pattern.REports that has no response to Seroquel .D/C Serqouel 100 mg po hs.Properties of Trazodone has been discussed with the patient ,including side effects,benefits and dose adjustemnt.Patient will start Trazodone 100 mg po hs tonight. Psychoeducation,supportive therapy provided.Relaxation techniques has been discussed. Total face to face time:: 30 Mental Status Exam - Mental Status Exam Alert and Oriented to: Time, Place, Person Cognitive Function: Grossly Intact Patient Appearance: Unkempt Mood: Anxious, Irritable Affect: Labile Patient Behavior: Restless, Cooperative Speech Pattern: Clear Voice Loudness: Normal Thought Process: Goal Oriented Thought Disorder: Not Present Hallucinations: Denies Suicidal Ideation: Denies Homicidal Ideation: Denies Insight/Judgement: Fair Sleep: Difficulty falling asleep Appetite: Good Muscle strength/Tone: Normal Gait/Station: Normal Psychiatric Treatment Plan - Problem List (1) Nicotine dependence Current Visit: Yes (2) Substance induced mood disorder Current Visit: Yes (3) Opioid dependence with withdrawal Current Visit: No (4) Cannabis dependence, uncomplicated Current Visit: No (5) Cocaine dependence, uncomplicated Current Visit: No
[2016-05-11] MEDS: cloNIDine HCL 0.1 MG TABLET PO PRN (14:09)
[2016-05-11] MEDS: diphenhydrAMINE HCL 50 MG CAPSULE PO PRN ×2 (21:31→23:57)
[2016-05-11] MEDS: THIAMINE HCL 100 MG TABLET (FP) PO SCH (21:31)
[2016-05-11] MEDS: PANTOPRAZOLE 40 MG TABLET (FP) PO SCH (21:35)
[2016-05-11] MEDS ORDERED: traZODone HCL 100 MG TABLET (FP) PO SCH (22:00)
[2016-05-12] MEDS: hydrOXYzine PAMOATE 50 MG CAPSULE (FP) PO PRN (03:19)
[2016-05-12] MEDS: PRENATAL VITAMINS W/ FOLIC ACID TABLET (FP) PO SCH (10:16)
[2016-05-12] MEDS: RANITIDINE HCL 150 MG TABLET (FP) PO SCH ×2 (10:16→21:03)
[2016-05-12] MEDS: POLYETHYLENE GLYCOL 3350 119 GM BTL PO SCH (10:17)
[2016-05-12] MEDS: PSYLLIUM 5.85 GM PACKET PO SCH ×2 (10:17→21:02)
--- NOTE | 2016-05-12 14:57 | PN ---
S Progress Note Note: patient c/o insomnia, seen by and Trazodone 100 mg added, will increase 200 mg , continue to monitor progress.
[2016-05-12] MEDS: PANTOPRAZOLE 40 MG TABLET (FP) PO SCH (21:02)
[2016-05-12] MEDS: THIAMINE HCL 100 MG TABLET (FP) PO SCH (21:02)
[2016-05-12] MEDS: traZODone HCL 100 MG TABLET (FP) PO SCH (21:03)
[2016-05-12] MEDS: diphenhydrAMINE HCL 50 MG CAPSULE PO PRN (21:03)
[2016-05-12] MEDS: ONDANSETRON *ODT* 4 MG TABLET SL PRN (23:39)
[2016-05-12] MEDS: MAG HYDROX/AL HYDROX/SIMETH 30 ML UNIT-DOSE CUP PO PRN (23:41)
[2016-05-13] MEDS: POLYETHYLENE GLYCOL 3350 119 GM BTL PO SCH (10:22)
[2016-05-13] MEDS: PSYLLIUM 5.85 GM PACKET PO SCH ×2 (10:22→21:49)
[2016-05-13] MEDS: PRENATAL VITAMINS W/ FOLIC ACID TABLET (FP) PO SCH (10:23)
[2016-05-13] MEDS: RANITIDINE HCL 150 MG TABLET (FP) PO SCH ×2 (10:23→21:49)
[2016-05-13] MEDS: MAGNESIUM HYDROX 2400MG/30ML ORAL SUSPENSION 30 ML CUP PO PRN (18:17)
[2016-05-13] MEDS: diphenhydrAMINE HCL 50 MG CAPSULE PO PRN (21:49)
[2016-05-13] MEDS: THIAMINE HCL 100 MG TABLET (FP) PO SCH (21:49)
[2016-05-13] MEDS: PANTOPRAZOLE 40 MG TABLET (FP) PO SCH (21:49)
[2016-05-13] MEDS: traZODone HCL 100 MG TABLET (FP) PO SCH (21:49)
[2016-05-14] MEDS: MAG HYDROX/AL HYDROX/SIMETH 30 ML UNIT-DOSE CUP PO PRN (03:53)
[2016-05-14] MEDS: PRENATAL VITAMINS W/ FOLIC ACID TABLET (FP) PO SCH (10:20)
[2016-05-14] MEDS: PSYLLIUM 5.85 GM PACKET PO SCH ×2 (10:21→22:29)
[2016-05-14] MEDS: RANITIDINE HCL 150 MG TABLET (FP) PO SCH ×2 (10:21→21:06)
[2016-05-14] MEDS: POLYETHYLENE GLYCOL 3350 119 GM BTL PO SCH (10:31)
[2016-05-14] MEDS: traZODone HCL 100 MG TABLET (FP) PO SCH (21:06)
[2016-05-14] MEDS: diphenhydrAMINE HCL 50 MG CAPSULE PO PRN (21:09)
[2016-05-14] MEDS ORDERED: diphenhydrAMINE HCL 25 MG CAPSULE (FP) PO ONE (21:09)
[2016-05-14] MEDS: PANTOPRAZOLE 40 MG TABLET (FP) PO SCH (22:00)
[2016-05-14] MEDS: THIAMINE HCL 100 MG TABLET (FP) PO SCH (22:00)
[2016-05-15] MEDS: RANITIDINE HCL 150 MG TABLET (FP) PO SCH ×2 (10:40→21:38)
[2016-05-15] MEDS: PRENATAL VITAMINS W/ FOLIC ACID TABLET (FP) PO SCH (10:40)
[2016-05-15] MEDS: POLYETHYLENE GLYCOL 3350 119 GM BTL PO SCH (10:41)
[2016-05-15] MEDS: PSYLLIUM 5.85 GM PACKET PO SCH ×2 (10:41→21:39)
[2016-05-15] MEDS: traZODone HCL 100 MG TABLET (FP) PO SCH (21:38)
[2016-05-15] MEDS: diphenhydrAMINE HCL 50 MG CAPSULE PO PRN (21:38)
[2016-05-15] MEDS: THIAMINE HCL 100 MG TABLET (FP) PO SCH (21:39)
[2016-05-15] MEDS: PANTOPRAZOLE 40 MG TABLET (FP) PO SCH (21:40)
[2016-05-15] MEDS: ONDANSETRON *ODT* 4 MG TABLET SL PRN (22:36)
[2016-05-16] MEDS: RANITIDINE HCL 150 MG TABLET (FP) PO SCH ×2 (09:38→21:30)
[2016-05-16] MEDS: PRENATAL VITAMINS W/ FOLIC ACID TABLET (FP) PO SCH (09:38)
[2016-05-16] MEDS: PSYLLIUM 5.85 GM PACKET PO SCH ×2 (09:39→21:28)
[2016-05-16] MEDS: POLYETHYLENE GLYCOL 3350 119 GM BTL PO SCH (09:39)
[2016-05-16] MEDS: diphenhydrAMINE HCL 50 MG CAPSULE PO PRN (21:29)
[2016-05-16] MEDS: THIAMINE HCL 100 MG TABLET (FP) PO SCH (21:29)
[2016-05-16] MEDS: PANTOPRAZOLE 40 MG TABLET (FP) PO SCH (21:29)
[2016-05-16] MEDS: traZODone HCL 100 MG TABLET (FP) PO SCH (21:29)
[2016-05-17] MEDS: ONDANSETRON *ODT* 4 MG TABLET SL PRN (00:45)
[2016-05-17] MEDS: POLYETHYLENE GLYCOL 3350 119 GM BTL PO SCH (10:56)
[2016-05-17] MEDS: PSYLLIUM 5.85 GM PACKET PO SCH ×2 (10:56→21:26)
[2016-05-17] MEDS: RANITIDINE HCL 150 MG TABLET (FP) PO SCH ×2 (10:56→21:26)
[2016-05-17] MEDS: PRENATAL VITAMINS W/ FOLIC ACID TABLET (FP) PO SCH (10:56)
[2016-05-17] MEDS: ACETAMINOPHEN 325 MG TABLET (FP) PO PRN (17:32)
[2016-05-17] MEDS: diphenhydrAMINE HCL 50 MG CAPSULE PO PRN (21:26)
[2016-05-17] MEDS: PANTOPRAZOLE 40 MG TABLET (FP) PO SCH (21:26)
[2016-05-17] MEDS: THIAMINE HCL 100 MG TABLET (FP) PO SCH (21:26)
[2016-05-17] MEDS: traZODone HCL 100 MG TABLET (FP) PO SCH (21:26)
[2016-05-18] MEDS: diphenhydrAMINE HCL 50 MG CAPSULE PO PRN ×2 (01:51→21:07)
[2016-05-18 07:05] VITALS: TEMP 98.2
[2016-05-18] MEDS: RANITIDINE HCL 150 MG TABLET (FP) PO SCH ×2 (10:03→21:06)
[2016-05-18] MEDS: PRENATAL VITAMINS W/ FOLIC ACID TABLET (FP) PO SCH (10:03)
[2016-05-18] MEDS: PSYLLIUM 5.85 GM PACKET PO SCH ×2 (10:04→21:08)
[2016-05-18] MEDS: POLYETHYLENE GLYCOL 3350 119 GM BTL PO SCH (10:04)
[2016-05-18] MEDS: MAGNESIUM HYDROX 2400MG/30ML ORAL SUSPENSION 30 ML CUP PO PRN (15:26)
[2016-05-18] MEDS: traZODone HCL 100 MG TABLET (FP) PO SCH (21:05)
[2016-05-18] MEDS: THIAMINE HCL 100 MG TABLET (FP) PO SCH (21:06)
[2016-05-18] MEDS: PANTOPRAZOLE 40 MG TABLET (FP) PO SCH (21:07)
[2016-05-19] MEDS: MAGNESIUM HYDROX 2400MG/30ML ORAL SUSPENSION 30 ML CUP PO PRN (06:23)
[2016-05-19 07:22] VITALS: BP 122/76; PULSE 97
--- NOTE | 2016-05-19 08:14 | PN ---
Psychiatric Progress Note Vital Signs: Vital Signs Period Temp Pulse Resp BP Sys/Linder Pulse Ox Last 24 Hr 98.2 F 97 18-18 122/76 Date of Session: 05/19/16 Chief Complaint:: discharge visit HPI: Patient addressed Opioid,Cocaine and Cannabis depenendce comorbid with Substance induced mood disorder. ROS: PUD medically managed. Current Medications: Active Medications Generic Name Dose Route Start Last Admin Trade Name Freq PRN Reason Stop Dose Admin Acetaminophen 650 mg 04/25/16 14:29 05/17/16 17:32 Tylenol - PO 650 mg Q4H PRN Administration FEVER OR PAIN Al Hydroxide/Mg Hydroxide 30 ml 04/25/16 14:29 05/14/16 03:53 Mylanta Oral Suspension - PO 30 ml Q6H PRN Administration DYSPEPSIA Clonidine 0.1 mg 05/01/16 20:43 05/11/16 14:09 Catapres - PO 0.1 mg TID PRN Administration HYPERTENSION Cyclobenzaprine HCl 10 mg 04/26/16 09:22 05/04/16 21:11 Flexeril - PO 10 mg TID PRN Administration MUSCLE SPASMS Diphenhydramine HCl 50 mg 05/10/16 01:40 05/18/16 21:07 Benadryl - PO 50 mg DAILY PRN Administration INSOMNIA Eucalyptus/Menthol/Phenol/Sorbitol 1 each 04/25/16 14:29 Cepastat Lozenge - MM Q4H PRN SORE THROAT Guaifenesin 10 ml 04/25/16 14:29 Robitussin Dm - PO Q6H PRN COUGH Hydroxyzine Pamoate 50 mg 04/26/16 07:33 05/12/16 03:19 Vistaril - PO 50 mg Q4H PRN Administration AGITATION Ibuprofen 400 mg 04/25/16 14:29 04/30/16 03:52 Motrin - PO 400 mg Q6H PRN Administration PAIN Loperamide HCl 4 mg 04/25/16 14:29 Imodium - PO Q6H PRN DIARRHEA Magnesium Hydroxide 30 ml 04/25/16 14:29 05/19/16 06:23 Milk Of Magnesia - PO 30 ml DAILY PRN Administration CONSTIPATION Ondansetron HCl 4 mg 04/26/16 13:03 05/17/16 00:45 Zofran Odt - SL 4 mg Q6H PRN Administration NAUSEA AND/OR VOMITING Pantoprazole Sodium 40 mg 05/05/16 22:00 05/18/16 21:07 Protonix - PO 40 mg DAILY@2200 ZOE Administration Polyethylene Glycol 17 gm 05/11/16 10:00 05/18/16 10:04 Miralax (For Daily Use) - PO 17 gm DAILY ZOE Administration Multivit/Folic Acid/Iron 1 tab 04/26/16 10:00 05/18/16 10:03 Vitamins (Sjr) - PO 1 tab DAILY ZOE Administration Pseudoephedrine/Triprolidine 1 combo 04/25/16 14:29 Actifed - PO TID PRN NASAL CONGESTION Psyllium Hydrophilic Mucilloid 5.85 gm 05/10/16 22:00 05/18/16 21:08 Metamucil (Sugar-Free) - PO Not Given BID ZOE Ranitidine HCl 150 mg 05/07/16 11:30 05/18/16 21:06 Zantac - PO 150 mg BID ZOE Administration Thiamine HCl 100 mg 04/25/16 22:00 05/18/16 21:06 Vitamin B1 - PO 100 mg HS ZOE Administration Trazodone HCl 200 mg 05/12/16 22:00 05/18/16 21:05 Desyrel - PO 200 mg HS ZOE Administration Trimethobenzamide HCl 200 mg 05/01/16 13:28 05/01/16 13:54 Tigan Injection - IM 200 mg Q8H PRN Administration NAUSEA AND/OR VOMITING Current Side Effect: No Lab tests ordered: No Lab tests reviewed: Yes Provider note:: Patient has completed today his treatment and met his goals, will continue to address his issues at [facility]. Patient focused on importance of continuing maintain abstinence, utilization all supports and coping skills to prevent relapses. During his treatment patient had a difficult time to adjust due to withdrawal symptoms, but with medication management patient was able to stay and continue treatment. Patient reports a good responce to the Trazodone, no side-effects reported, scripts fpr 30 days suply provided. Patient is stable for discharge. Total face to face time:: 35 Mental Status Exam - Mental Status Exam Alert and Oriented to: Time, Place, Person Cognitive Function: Good Patient Appearance: Well Groomed Mood: Hopeful Affect: Appropriate, Mood Congruent Patient Behavior: Appropriate, Cooperative Speech Pattern: Clear, Appropriate Voice Loudness: Normal Thought Process: Intact Thought Disorder: Not Present Hallucinations: Denies Suicidal Ideation: Denies Homicidal Ideation: Denies Insight/Judgement: Fair Sleep: Fair Appetite: Fair Muscle strength/Tone: Normal Gait/Station: Normal Psychiatric Treatment Plan - Problem List (1) Nicotine dependence Current Visit: Yes (2) Substance induced mood disorder Current Visit: Yes (3) Opioid dependence with withdrawal Current Visit: No (4) Cannabis dependence, uncomplicated Current Visit: No
[2016-05-19] MEDS: RANITIDINE HCL 150 MG TABLET (FP) PO SCH (09:38)
[2016-05-19] MEDS: PRENATAL VITAMINS W/ FOLIC ACID TABLET (FP) PO SCH (09:38)
[2016-05-19] MEDS: POLYETHYLENE GLYCOL 3350 119 GM BTL PO SCH (09:40)
[2016-05-19] MEDS: PSYLLIUM 5.85 GM PACKET PO SCH (09:40)
== END 2016-05-19 10:35 | disposition home or self-care (01) | DRG 772 ==
LOC: YASAS 13:42 → Y5N 13:44
PROVIDERS: ADMIT Psychiatry & Neurology Psychiatry; ATTEND Psychiatry & Neurology Psychiatry
PROC: HZ42ZZZ Group Counseling for Substance Abuse Treatment, Cognitive-Behavioral (ICD-10-PCS; principal; 2016-04-25)
DX: F11.20 Opioid dependence, uncomplicated (principal); F14.20 Cocaine dependence, uncomplicated; F12.20 Cannabis dependence, uncomplicated; F17.210 Nicotine dependence, cigarettes, uncomplicated; F19.24 Other psychoactive substance dependence with psychoactive substance-induced mood disorder; G47.00 Insomnia, unspecified; R10.9 Unspecified abdominal pain; Z87.11 Personal history of peptic ulcer disease